=== PATIENT | female | born 1985 | race African-American/Black ===

== ENCOUNTER 2018-09-05 18:07 | Emergency (ER) | payer BC, MEDICAID ==
[2018-09-05 18:16] VITALS: BP 111/42
--- NOTE | 2018-09-05 19:35 | ER Document Report ---
ED Skin Rash/Insect Bite/Abscs - General Chief Complaint: Abscess Stated Complaint: POSSIBLE ABSCESS Time Seen by Provider: 09/05/18 19:17 Primary Care Provider: KERRIE CRAIG MD [Primary Care Provider] - Follow up as needed Mode of Arrival: Ambulatory Information source: Patient Notes: Patient is a otherwise healthy 33-year-old female who presents to the emergency department with complaint of abscess to her right axilla. Patient reports history of same in the past, states she has never had one this large though. Patient denies any fever, denies any drainage from the area. Patient does report that she is approximately 16 weeks . Denies any history of MRSA. TRAVEL OUTSIDE OF THE [place] IN LAST 30 DAYS: No - Related Data Allergies/Adverse Reactions: No Known Allergies Allergy (Verified 09/05/18 18:08) Past Medical History - General Information source: Patient - Social History Smoking Status: Current Some Day Smoker Frequency of alcohol use: None Drug Abuse: None Family History: Reviewed & Not Pertinent - Medical History Medical History: Negative Renal/ Medical History: Denies: Hx Peritoneal Dialysis Past Surgical History: Reports: Hx Section - Immunizations Hx Diphtheria, Pertussis, Tetanus Vaccination: No Review of Systems - Review of Systems Constitutional: No symptoms reported EENT: No symptoms reported Cardiovascular: No symptoms reported Respiratory: No symptoms reported Gastrointestinal: No symptoms reported Genitourinary: No symptoms reported Female Genitourinary: No symptoms reported Musculoskeletal: No symptoms reported Skin: See HPI Hematologic/Lymphatic: No symptoms reported Neurological/Psychological: No symptoms reported Physical Exam - Vital signs Vitals: Temp Pulse Resp BP Pulse Ox 98.8 F 92 16 111/42 L 100 09/05/18 18:14 09/05/18 18:14 09/05/18 18:14 09/05/18 18:14 09/05/18 18:14 - Notes Notes: PHYSICAL EXAMINATION: GENERAL: Well-appearing, well-nourished and in no acute distress. HEAD: Atraumatic, normocephalic. EYES: Pupils equal round extraocular movements intact, conjunctiva are normal. ENT: Nares patent NECK: Normal range of motion LUNGS: No respiratory distress Musculoskeletal: Normal range of motion NEUROLOGICAL: Normal speech, normal gait. PSYCH: Normal mood, normal affect. SKIN: Large area of induration with fluctuance noted to right axilla. No surrounding erythema. Course - Re-evaluation Re-evalutation: Abscess was incised, drained and packed. Patient tolerated well. Patient instructed to remove packing in 24-48 hours. Patient advised of abscess care as outlined in discharge instructions. - Vital Signs Vital signs: Temp Pulse Resp BP Pulse Ox 98.8 F 92 16 111/42 L 100 09/05/18 18:14 09/05/18 18:14 09/05/18 18:14 09/05/18 18:14 09/05/18 18:14 Procedures - Incision and Drainage Right axilla Type: Simple Anesthetic type: 1% Lidocaine Blade size: 11 I&D procedure: Betadine prep applied, Shurclens applied Incision Method: Incision made by scalpel Discharge - Discharge Clinical Impression: Abscess Condition: Stable Disposition: HOME, SELF-CARE Additional Instructions: ABSCESS: You have an abscess (boil). This a pus-forming infection, usually due to staph. Some boils may be left to drain on their own, but most require lancing. From the time the tender lump first appears, it may be three or four days before the abscess is ready to tung. Local heat and rest help at this stage of treatment. An antibiotic may prevent spread of the infection. Once the abscess is opened, packing may be placed into it. This is done so pus is not sealed inside by premature closure of the cavity. The packing will be removed at your follow-up visit or you may be advised to remove it yourself at home. Sometimes this packing must be replaced a few times during healing. The wound will heal with surprisingly little scar. Depending on the size and location of an abscess, healing can take one to four weeks. You may shower and wash the area around the incision site two or three times a day. Antibiotics may be prescribed, but are usually not necessary after an abscess has been drained. If you develop fever, chills, worsening pain, or increasing swelling in the area, call the doctor or return immediately. POST INCISION AND DRAINAGE: You have had an incision made to allow drainage of an abscess. The incision must remain open so that pus and debris can drain from the wound. If the abscess cavity is large, packing is placed. This keeps the tissues from collapsing and trapping pus inside, while the body shrinks the cavity. The packing may need to be replaced every day or two. The physician will instruct you on the packing. Keep a bulky dressing over the area. Replace it if it becomes saturated with blood or pus. Do not disturb the packing (if present). You may shower and cleanse the area with gentle soap and warm water two or three times a day. Local warmth may be soothing, and may promote faster healing. Return if you develop high fever or chills, or if you note spreading redness, increasing swelling, or increasing tenderness. MRSA CELLULITIS: You have an infection of your skin and underlying soft tissues called cellulitis. This is due to bacteria, which can enter through any break in the skin, or even through an irritated hair follicle. Untreated, cellulitis will usually worsen and may form an abscess which requires draining. Although many bacterial organisms can cause cellulitis and abscess formations, the most likely bacteria is Methicillin-Resistant Staph Aureus, or MRSA for short. Antibiotics are required. Usually, warm packs or warm soaks, and elevation of the infected area are recommended. You should start getting better within 24 to 36 hours. Most infections respond quickly to the right medication. Follow-up care is important, however, to check for abscess (boil) formation, unsuspected foreign body, or resistant infection. If you develop fever, chills, or if the area of infection is becoming rapidly more swollen or painful, call the doctor at once. ORAL NARCOTIC MEDICATION: You have been given a prescription for pain control. This medication is a narcotic. It's best taken with food, as nausea can result if taken on an empty stomach. Don't operate machinery or drive within six hours of taking this medication. Do not combine this medicine with alcohol, or with any medication which can cause sedation (such as cold tablets or sleeping pills) unless you get permission from the physician. Narcotics tend to cause constipation. If possible, drink plenty of fluids and eat a diet high in fiber and fruits. FOLLOW-UP CARE: Most simple abscesses will not require a follow up visit. If you had packing placed in the abscess, remove it as instructed by the physician. If you have been referred to a physician for follow-up care, call the physicians office for an appointment as you were instructed or within the next two days. If you experience worsening or a significant change in your symptoms, return to the Emergency Department at any time for re-evaluation. Please remove packing in 24-48 hours. Return to the emergency department if you develop a fever or worsening symptoms. Prescriptions: RX: Clindamycin HCl 300 mg PO QID #40 capsule Referrals: KERRIE CRAIG MD [Primary Care Provider] - Follow up as needed
[2018-09-05] MEDS ORDERED: HYDROCODONE/ACETAMINOPHEN 5-325 MG (6 TAB/ER DISP) PO PRN (20:24)
== END 2018-09-05 21:03 | disposition home or self-care (01) ==
LOC: ER 18:07
DX: L02.411 Cutaneous abscess of right axilla (principal)
CPT/HCPCS: 99282; A6266

== ENCOUNTER 2019-01-18 04:55 | Inpatient (IN) | payer BC ==
[2019-01-15 11:35] LABS: APPEARANCE,URINE SLIGHTLY-CLOUDY; BILIRUBIN,URINE NEGATIVE (NEGATIVE); COLOR,URINE YELLOW; GLUCOSE, URINE NEGATIVE (NEGATIVE); KETONES,URINE NEGATIVE (NEGATIVE); LEUKOCYTE ESTERASE,URINE SMALL (NEGATIVE); NITRITE,URINE NEGATIVE (NEGATIVE); PROTEIN,URINE NEGATIVE (NEGATIVE); URINE SPECIFIC GRAVITY 1.015
[2019-01-15 11:39] LABS: ABSOLUTE BASOPHILS # (AUTO) 0.1 10^3/uL (0.0-0.2); ABSOLUTE EOSINOPHILS # (AUTO) 0.3 10^3/uL (0.0-0.6); ABSOLUTE LYMPHOCYTES (AUTO) 2.1 10^3/uL (0.5-4.7); ABSOLUTE MONOCYTES (AUTO) 0.5 10^3/uL (0.1-1.4); ABSOLUTE NEUT (AUTO) 4.4 10^3/uL (1.7-8.2); BASOPHILS % (AUTO) 0.9 % (0-2); HEMATOCRIT 28.8 % (36.0-47.0); HEMOGLOBIN 9.8 g/dL (12.0-15.5); LYMPHOCYTES % (AUTO) 28.6 % (13-45); MEAN CORPUSCULAR HEMOGLOBIN 29.3 pg (27.0-33.4); MEAN CORPUSCULAR HGB CONC 33.9 g/dL (32.0-36.0); MEAN CORPUSCULAR VOLUME 87 fl (80-97); MONOCYTES % (AUTO) 6.6 % (3-13); RED BLOOD COUNT 3.33 10^6/uL (3.72-5.28); RED CELL DISTRIBUTION WIDTH 15.2 % (11.5-14.0); SEGMENTED NEUTROPHILS % (AUTO) 59.9 % (42-78); TOTAL CELLS COUNTED % (AUTO) 100 %; WHITE BLOOD COUNT 7.3 10^3/uL (4.0-10.5)
[2019-01-15 11:52] LABS: URINE AMPHETAMINES SCREEN NEGATIVE; URINE BARBITURATES SCREEN NEGATIVE; URINE BENZODIAZEPINES SCREEN NEGATIVE; URINE COCAINE SCREEN NEGATIVE; URINE MARIJUANA (THC) SCREEN NEGATIVE; URINE METHADONE SCREEN NEGATIVE; URINE PHENCYCLIDINE SCREEN NEGATIVE
[2019-01-15 12:00] LABS: PLATELET COUNT 218 10^3/uL (150-450)
[2019-01-18] MEDS ORDERED: CEFAZOLIN SODIUM 2 GM in DEXTROSE 5%-WATER 100 ML IV PRN (05:00)
[2019-01-18] MEDS ORDERED: CEFAZOLIN 1 GM/D5W RTU 2 GM/100 ML RTUPB IV ONE (05:18)
[2019-01-18] MEDS ORDERED: RINGERS SOLUTION,LACTATED 1,000 ML IV PRN (06:38)
[2019-01-18] MEDS ORDERED: LACTATED RINGERS 1000 ML IV PRN (06:44)
[2019-01-18] MEDS ORDERED: LIDOCAINE 0.5% INJ-PF (5 MG/ML) 50 ML SDV SUBCUT PRN (06:45)
[2019-01-18] MEDS ORDERED: KETAMINE HCL INJ 500 MG/10 ML VIAL ONE (06:50)
[2019-01-18] MEDS ORDERED: OXYTOCIN 10 UNIT/ML VIAL ONE (07:08)
[2019-01-18] MEDS ORDERED: MIDAZOLAM 2 MG/2 ML INJ ONE (07:08)
[2019-01-18] MEDS ORDERED: EPHEDRINE SULFATE INJ 50 MG/1 ML AMPULE ONE (07:08)
[2019-01-18] MEDS ORDERED: PROPOFOL INJ 200 MG/20 ML VIAL IV ONE (07:08)
[2019-01-18] MEDS ORDERED: FENTANYL CITRATE INJ/PF 100 MCG/2 ML AMPUL ONE (07:08)
[2019-01-18] MEDS ORDERED: OXYTOCIN/NORMAL SALINE 20 UNIT/1,000 ML RTUINJ ONE (07:08)
[2019-01-18] MEDS ORDERED: ONDANSETRON HCL INJ/PF 4 MG/2 ML SDV ONE (07:09)
[2019-01-18] MEDS ORDERED: ACETAMINOPHEN 1,000 MG/100 ML RTUPB IV ONE (07:09)
[2019-01-18] MEDS ORDERED: PROMETHAZINE HCL INJ 25 MG/1 ML VIAL IV PRN ×2 (08:18→09:45)
[2019-01-18] MEDS ORDERED: DIPHENHYDRAMINE HCL 50 MG/ML VIAL IV PRN (08:18)
[2019-01-18] MEDS ORDERED: FENTANYL CITRATE INJ/PF 100 MCG/2 ML AMPUL IV PRN ×3 (08:18)
[2019-01-18] MEDS ORDERED: MEPERIDINE HCL/PF INJ 25 MG/1 ML DISP.SYRIN IV PRN (08:18)
[2019-01-18] MEDS ORDERED: MORPHINE SULFATE 10 MG/ML INJ IV PRN (08:18)
[2019-01-18] MEDS ORDERED: OXYTOCIN/NORMAL SALINE 20 UNIT/1,000 ML RTUINJ IV PRN (09:45)
[2019-01-18] MEDS ORDERED: SIMETHICONE 80 MG TAB.CHEW PO PRN (09:45)
[2019-01-18] MEDS ORDERED: ACETAMINOPHEN 325 MG TABLET PO PRN (09:45)
[2019-01-18] MEDS ORDERED: DIPH/PERTUSS(ACELL)/TETANUS VAC/PF 0.5 ML SYR (>=10YO) IM PRN (09:45)
[2019-01-18] MEDS ORDERED: HYDROMORPHONE HCL INJ/PF 2 MG/ML AMPULE IV PRN (09:45)
[2019-01-18] MEDS ORDERED: ACETAMINOPHEN 1,000 MG/100 ML RTUPB IV PRN (09:45)
[2019-01-18] MEDS ORDERED: MEASLES,MUMPS&RUBELLA VACC/PF 0.5 ML VIAL SUBCUT PRN (09:45)
--- NOTE | 2019-01-18 10:10 | PDOC DELIVERY SUMMARY ---
Delivery Summary - Maternal Hx : VII Hx # Term Pregnancies: 5 Hx Total # of Abortions (Sponateous & Elective): 1 ARCHIE: 01/24/19 Gestational Age: 39.1 Ruptured Membranes: AROM Time of Rupture: 08:14 Fluids: Clear - Delivery Presentation: Vertex Heart Rate Monitoring: Done Pre-Operatively Support Person Present: Yes Location: OR : Scheduled, Repeat Placenta: Within Normal Limits Delivery of Placenta Date: 01/18/19 Delivery of Placenta Time: 08:16 - Medications Type of Anesthesia:: Spinal - Infant Assess and Care Baby 1 Delivery of Date: 01/18/19 Delivery of Time: 08:14 at 1 minute: 7 at 5 minutes: 8 Preprinted Number On Band: [id number] Skin to Skin: No To Nursery At: 08:26 Mode of Transport: Bassinet Delivery Weight: 2,610 Delivery Length: 19 in - Delivery Personnel Water System Operator: TAMY Simmons RN: ALAYNA FOWLER MD: BARRY BRAGG
--- NOTE | 2019-01-18 10:13 | Operative Report ---
Operative Report DATE OF SURGERY: 01/18/19 PREOPERATIVE DIAGNOSIS: Repeat and tubal ligation POSTOPERATIVE DIAGNOSIS: Same OPERATION: Repeat via low transverse uterine incision and tubal ligation via Kimberly method SURGEON: BARRY BRAGG ANESTHESIA: Spinal TISSUE REMOVED OR ALTERED: Placenta and 2 segments of fallopian tube ESTIMATED BLOOD LOSS: 500 cc INTRAOPERATIVE FINDINGS: Viable infant, normal uterus tubes and ovaries PROCEDURE: Patient was taken to the OR and placed in supine position after her spinal anesthesia. She is prepared and draped in sterile fashion. Benavides was placed for drainage of the bladder. Low transverse incision was made and carried down the level of the fascia. The fascial incision was made with knife and extended bilaterally with curved Gaspar scissors. The fascia was off the rectus muscles using sharp and blunt dissection. The rectus muscles are in the midline. The peritoneum was entered without incident. Bladder blade was placed in uterine segment was identified. A low transverse incision was made creating a bladder flap. Bladder blade was placed low transverse uterine incision was made with the knife and extended with fingertips. The baby was delivered with some fundal pressure. Mouth and nose were suctioned free. The cord is doubly clamped and cut. Baby is passed off to the feeder catcher in attendance. The placenta was manually extracted with trailing membranes. The uterus was externalized wrapped in a moist lap sponge. Uterine contents wiped free. Uterus was closed with a running locking layer of 0 chromic suture using the second layer to imbricate the first completing a double layer closure of the uterus. The serosa was closed with a running 2-0 chromic stitch. The tubal ligation was carried out in the modified Chester method using plain gut suture to tie off 2 segments of fallopian tube. The cut edge of each tube was cauterized. Both segments of tube were passed off the field. The pelvis was irrigated and suctioned free of fluid the uterus was replaced in the abdomen. The abdominal wall peritoneum was closed with running 2-0 chromic stitch. Fascia was closed with a running 0 Vicryl in 2 segments. Ilene's layer was brought together with 0 plain gut stitch and the skin was closed with running subcuticular 4-0 undyed Vicryl stitch. The wound was dressed mother and baby did well.
[2019-01-18] MEDS: OXYCODONE-ACETAMINOPHEN 5-325 MG TABLET PO PRN ×3 (10:50→23:36)
[2019-01-18] MEDS ORDERED: DEXAMETHASONE SOD PHOSPHATE INJ 4 MG/1 ML VIAL ONE (14:20)
[2019-01-18] MEDS ORDERED: PHENYLEPHRINE HCL INJ/PF 10 MG/1 ML SDV ONE (14:20)
[2019-01-18] MEDS ORDERED: GLYCOPYRROLATE 1 MG/5 ML VIAL ONE (14:20)
[2019-01-18] MEDS ORDERED: KETOROLAC TROMETHAMINE 60 MG/2 ML SDV ONE (14:20)
[2019-01-18] MEDS: DOCUSATE SODIUM 100 MG CAPSULE PO SCH (17:35)
[2019-01-18] MEDS: KETOROLAC TROMETHAMINE INJ/PF 30 MG/1 ML SDV IV SCH (17:35)
[2019-01-19] MEDS: KETOROLAC TROMETHAMINE INJ/PF 30 MG/1 ML SDV IV SCH ×3 (01:48→09:41)
[2019-01-19 06:53] LABS: HEMATOCRIT 20.8 % (36.0-47.0); MEAN CORPUSCULAR HEMOGLOBIN 29.5 pg (27.0-33.4); MEAN CORPUSCULAR HGB CONC 34.3 g/dL (32.0-36.0); MEAN CORPUSCULAR VOLUME 86 fl (80-97); PLATELET COUNT 172 10^3/uL (150-450); RED BLOOD COUNT 2.43 10^6/uL (3.72-5.28)
[2019-01-19 07:04] LABS: HEMOGLOBIN 7.2 g/dL (12.0-15.5)
[2019-01-19] MEDS: OXYCODONE-ACETAMINOPHEN 5-325 MG TABLET PO PRN ×2 (07:53→17:21)
--- NOTE | 2019-01-19 09:32 | PDOC PROGRESS REPORT ---
Subjective-OB Progress Note for:: 01/19/19 Subjective: Doing well, no c/o, bottle feeding, wearing bra, holding baby,family at bs, walking to BR, voiding, pain under control Physical Exam (OB) Vital Signs: Temp Pulse Resp BP Pulse Ox 98.0 F 74 18 120/64 100 01/19/19 07:49 01/19/19 07:49 01/19/19 07:49 01/19/19 07:49 01/19/19 07:49 Intake & Output 01/18/19 01/19/19 01/20/19 06:59 06:59 06:59 Intake Total 600 Output Total 1175 Balance -575 Weight 87.3 kg - PIH/Pre-Eclampsia DTR's: 2 + Clonus: Negative Headache: Absent Epigastric Pain: No Visual Changes: No - Dressing Removed: No Incision: Dressing Closure Type: Surgical Glue - Bilateral Tubal Ligation Dressing Removed: No Site: Dressing - Lochia Lochia Amount: Moderate 25-50 ml Lochia Color: Rubra/Red - Abdomen Description: Tender, Soft Hernia Present: No Fundal Description: Firm, Midline Fundal Height: u/u - u/2 Objective-Diagnostic Laboratory: 01/19/19 05:51 01/19/19 05:51 WBC 11.0 H RBC 2.43 L Hgb 7.2 L Hct 20.8 L MCV 86 MCH 29.5 MCHC 34.3 RDW 15.0 H Plt Count 172 Assessment and Plan(PN) - Assessment and Plan (1) Iron deficiency anemia during Is this a current diagnosis for this admission?: Yes (2) Encounter for sterilization Is this a current diagnosis for this admission?: Yes (3) Status post repeat low transverse section Is this a current diagnosis for this admission?: Yes - Time Spent with Patient Time with patient: Less than 15 minutes Medications reviewed and adjusted accordingly: Yes - Disposition Anticipated Discharge: Home Within: within 24 hours
[2019-01-19] MEDS: PRENATAL VITAMIN W DHA CAPSULE PO SCH (09:35)
[2019-01-19] MEDS: DOCUSATE SODIUM 100 MG CAPSULE PO SCH ×2 (09:35→17:22)
[2019-01-19] MEDS: IBUPROFEN 800 MG TABLET PO SCH (17:22)
[2019-01-20] MEDS: IBUPROFEN 800 MG TABLET PO SCH ×3 (00:15→11:02)
[2019-01-20] MEDS: OXYCODONE-ACETAMINOPHEN 5-325 MG TABLET PO PRN ×2 (01:55→09:22)
[2019-01-20] MEDS: DOCUSATE SODIUM 100 MG CAPSULE PO SCH (09:22)
[2019-01-20] MEDS: PRENATAL VITAMIN W DHA CAPSULE PO SCH (09:22)
--- NOTE | 2019-01-20 09:49 | PDOC DISCHARGE SUMMARY ---
Final Diagnosis Discharge Date: 01/20/19 - POD#2, doing well, no complaints, desires to go home today, up out of bed ambulating. A+, rubella Non-immune, bottlefeeding - Final Diagnosis (1) Encounter for sterilization Is this a current diagnosis for this admission?: Yes (2) Iron deficiency anemia during Is this a current diagnosis for this admission?: Yes (3) Status post repeat low transverse section Is this a current diagnosis for this admission?: Yes Discharge Data - Discharge Medication Prescriptions: Ferrous Sulfate [Feosol 325 mg Tablet] 325 mg PO DAILY #30 tablet Ibuprofen [Motrin 800 mg Tablet] 800 mg PO Q6 #60 tablet Oxycodone HCl/Acetaminophen [Percocet 5-325 mg Tablet] 1 tab PO Q4HP PRN #30 tablet PRN Reason: Home Medications: Vit,Calc76/Iron/Folic [Prenatabs Rx Tablet] 1 tab PO DAILY 12/26/18 Ferrous Sulfate [Feosol 325 mg Tablet] 325 mg PO DAILY #30 tablet 01/20/19 Ibuprofen [Motrin 800 mg Tablet] 800 mg PO Q6 #60 tablet 01/20/19 Oxycodone HCl/Acetaminophen [Percocet 5-325 mg Tablet] 1 tab PO Q4HP PRN #30 tablet 01/20/19 Reason(s) for Admission: Ceasarean Section-Repeat Procedures: Ultrasound, Management of Obstetric Complications Intrapartum Procedure(s): : Low Cervical, Transverse, Tubal Ligation - Diagnosis Test Laboratory: Temp Pulse Resp BP Pulse Ox 98.5 F 80 18 135/76 H 100 01/20/19 07:46 01/20/19 07:46 01/20/19 04:46 01/20/19 07:46 01/20/19 07:46 01/15/19 01/15/19 01/19/19 10:50 10:54 05:51 RBC 3.33 L 2.43 L Hgb 9.8 L 7.2 L Hct 28.8 L 20.8 L Urine Opiates Screen NEGATIVE - Discharge information/Instructions Discharge Activity: Activity As Tolerated, No Driving, No Lifting Over 10 Pounds, Pelvic Rest Discharge Diet: As Tolerated, Regular Disposition: HOME, SELF-CARE Follow up with: [facility] in: 1, Weeks
[2019-01-20 10:00] VITALS: BP 114/60
[2019-01-20] MEDS ORDERED: FERROUS SULFATE 325 MG TABLET PO SCH (11:00)
[2019-01-21] MEDS ORDERED: RINGERS SOLUTION,LACTATED 1,000 ML IV PRN (05:00)
[2019-01-21] MEDS ORDERED: LIDOCAINE 0.5% INJ-PF (5 MG/ML) 50 ML SDV SUBCUT PRN (05:00)
[2019-01-21] MEDS ORDERED: LACTATED RINGERS 1000 ML IV PRN (05:00)
== END 2019-01-20 13:21 | disposition home or self-care (01) | DRG 785 ==
LOC: 2S 04:55
PROVIDERS: ADMIT Obstetrics & Gynecology; ATTEND Obstetrics & Gynecology
PROC: 0U570ZZ Destruction of Bilateral Fallopian Tubes, Open Approach (ICD-10-PCS; 2019-01-18)
PROC: 10D00Z1 Extraction of Products of Conception, Low, Open Approach (ICD-10-PCS; principal; 2019-01-18 07:45)
DX: O34.211 Maternal care for low transverse scar from previous cesarean delivery (principal); N85.8 Other specified noninflammatory disorders of uterus; O99.019 Anemia complicating pregnancy, unspecified trimester; Z37.0 Single live birth; Z30.2 Encounter for sterilization; Z3A.39 39 weeks gestation of pregnancy
CPT/HCPCS: 1961; 36415; 59025; 80307; 81001; 85025; 85027; 86850; 86900; 86901; 88302; 94799; J0131; J0690; J1100; J1170; J1885; J2250; J2370; J2405; J2590; J2704; J3010; J3490; J7060; J7120

== ENCOUNTER 2019-08-21 15:59 | Emergency (ER) | payer BC, MEDICAID ==
--- NOTE | 2019-08-21 16:17 | ER Document Report ---
HPI - HPI Time Seen by Provider: 08/21/19 16:11 Notes: CHIEF COMPLAINT: Dysuria and hematuria HPI: 34-year-old female presenting to the emergency department complaining of dysuria and hematuria. Symptoms began yesterday while at work. Denies vaginal bleeding. Went to an urgent care was placed on Bactrim she is taken 1 dose and still has symptoms so now presents for evaluation. No fever. Has not had nausea vomiting ROS: See HPI - all other systems were reviewed and are otherwise negative Constitutional: no fever Eyes: no drainage, no blurred vision ENT: no runny nose, no sore throat Cardiovascular: no chest pain Resp: no SOB, no cough GI: no vomiting, no diarrhea, no abdominal pain : Positive dysuria, positive hematuria Integumentary: no rash Allergy: no hives Musculoskeletal: no extremity pain or swelling Neurological: no numbness/tingling, no weakness MEDICATIONS: I agree with the patient medications as charted by the RN. ALLERGIES: I agree with the allergies as charted by the RN. PAST MEDICAL HISTORY/PAST SURGICAL HISTORY: Reviewed and agree as charted by RN. SOCIAL HISTORY: Reviewed and agree as charted by RN. FAMILY HISTORY: No significant familial comorbid conditions directly related to patient complaint EXAM: Reviewed vital signs as charted by RN. CONSTITUTIONAL: Alert and oriented and responds appropriately to questions. Well-appearing; well-nourished mild distress secondary to discomfort HEAD: Normocephalic; atraumatic EYES: PERRL; Conjunctivae clear, sclerae non-icteric ENT: normal nose; no rhinorrhea; moist mucous membranes NECK: Supple without meningismus; non-tender; no cervical lymphadenopathy, no masses CARD: RRR; no murmurs, no clicks, no rubs, no gallops; symmetric distal pulses RESP: Normal chest excursion without splinting or tachypnea ABD/GI: Normal bowel sounds; non-distended; soft, non-tender, no rebound, no guarding; no palpable organomegaly or masses. BACK: The back appears normal and is non-tender to palpation, there is no CVA tenderness EXT: Normal ROM in all joints; non-tender to palpation; no cyanosis, no effu sions, no edema SKIN: Normal color for age and race; warm; dry; good turgor; no acute lesions noted NEURO: Moves all extremities equally; Motor and sensory function intact PSYCH: The patient's mood and manner are appropriate. Grooming and personal hygiene are appropriate. MDM: 34-year-old female presenting with hematuria and dysuria for approximately 24 hours. Took 1 dose of Bactrim prescribed at an urgent care. Will send urinalysis. She denies any vaginal bleeding, has no abdominal or pelvic pain on palpation of the abdomen - REPRODUCTIVE Reproductive: REPORTS: : Past Medical History - Social History Smoking Status: Unknown if Ever Smoked Family History: Reviewed & Not Pertinent Endocrine Medical History: Denies: Hx Hyperthyroidism, Hx Hypothyroidism Renal/ Medical History: Denies: Hx Kidney Stones, Hx Ovarian Cysts, Hx Peritoneal Dialysis, Hx Pelvic Inflammatory Disease Malignancy Medical History: Denies: Hx Breast Cancer, Hx Cervical Cancer, Hx Ovarian Cancer Infectious Medical History: Denies: Hx HIV Past Surgical History: Reports: Hx Section - Immunizations Hx Diphtheria, Pertussis, Tetanus Vaccination: No Vertical Provider Document - INFECTION CONTROL TRAVEL OUTSIDE OF THE [place] IN LAST 30 DAYS: No Course - Re-evaluation Re-evalutation: 08/21/19 17:00 Patient does appear to have a fairly significant UTI will give Rocephin, discharge home to continue on Bactrim we will add Pyridium Discharge - Discharge Clinical Impression: Acute cystitis Qualifiers: Hematuria presence: with hematuria Qualified Code(s): N30.01 - Acute cystitis with hematuria Condition: Stable Disposition: HOME, SELF-CARE Instructions: Urinary Tract Infection ([facility]) Additional Instructions: Continue to take the Bactrim until finished. Add Pyridium to help with the discomfort, follow-up primary care provider for reevaluation return for onset of fever or vomiting or worsening pain Prescriptions: Phenazopyridine HCl [Pyridium 100 Mg Tablet] 100 mg PO TID #9 tablet Referrals: SATHYA URBANO MD [Primary Care Provider] - Follow up as needed
[2019-08-21 16:44] LABS: APPEARANCE,URINE CLOUDY; BILIRUBIN,URINE NEGATIVE (NEGATIVE); COLOR,URINE YELLOW; GLUCOSE, URINE NEGATIVE (NEGATIVE); KETONES,URINE NEGATIVE (NEGATIVE); LEUKOCYTE ESTERASE,URINE MODERATE (NEGATIVE); NITRITE,URINE NEGATIVE (NEGATIVE); PROTEIN,URINE >=500 mg/dL (NEGATIVE); URINE SPECIFIC GRAVITY 1.027
[2019-08-21] MEDS ORDERED: CEFTRIAXONE INJ 1000 MG VIAL IM ONE (16:59)
[2019-08-21] MEDS ORDERED: PHENAZOPYRIDINE HCL 200 MG TABLET PO ONE (17:01)
[2019-08-21 17:02] VITALS: BP 116/64
[2019-08-21] MEDS ORDERED: LIDOCAINE 1% INJ-PF (10 MG/ML) 30 ML SDV ONE (17:12)
== END 2019-08-21 17:33 | disposition home or self-care (01) ==
LOC: ER 15:59
DX: N30.01 Acute cystitis with hematuria (principal)
CPT/HCPCS: 99283; 96372; 81025; 81001; J3490 ×2; J0696

== ENCOUNTER 2020-06-13 08:19 | Emergency (ER) | payer BC ==
[2020-06-13 10:53] LABS: APPEARANCE,URINE CLOUDY; BILIRUBIN,URINE NEGATIVE (NEGATIVE); GLUCOSE, URINE NEGATIVE (NEGATIVE); KETONES,URINE 20 mg/dL (NEGATIVE); LEUKOCYTE ESTERASE,URINE LARGE (NEGATIVE); NITRITE,URINE NEGATIVE (NEGATIVE); PROTEIN,URINE 100 mg/dL (NEGATIVE); URINE SPECIFIC GRAVITY 1.027; UROBILINOGEN,URINE NEGATIVE mg/dL (<2.0)
[2020-06-13 10:54] LABS: COLOR,URINE DARK YELLOW
--- NOTE | 2020-06-13 10:59 | ER Document Report ---
ED GI/ - General Chief Complaint: Urinary Problem Stated Complaint: URINARY PROBLEM Mode of Arrival: Ambulatory Information source: Patient Notes: 06/13/20 09:34 - ED Nursing Note by ADRIANA ZHANG Num: [id number] : 1985 Patient Age: 34 pt comes to ed from home via pov brought by self for c/o 4day onset urinary concerns. +hemturia, burning, urgency, hesitency. denies n/v/d/f/c, denies flank pain or vaginal symptoms. similar discomfort with UTI >6mon ago. attempted OTC AZO with no relief. Initialized on 06/13/20 09:34 - END OF NOTE MY NOTES 34-year-old black female arrives with 4-day history of dysuria and suprapubic pain. She denies any vaginal discharge denies any new toilet paper or new soaps or detergents. She has had some hematuria. Her discomfort is around 7 out of 10. She reports she additionally tried some [id number] Azo and this helped her with her symptoms but within 1 day her symptoms returned and became more severe. She has had 1 infection UTI and her past many years ago. 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 TRAVEL OUTSIDE OF THE [place] IN LAST 30 DAYS: No - HPI Patient complains to provider of: Abdominal pain - Edwin, Dysuria, Hematuria. No: Feeding tube problem, Flank pain, Benavides catheter problem, Missed/Late menses, Pelvic pain, Vaginal bleeding - Related Data Allergies/Adverse Reactions: No Known Allergies Allergy (Verified 06/13/20 09:31) Home Medications: denies Past Medical History - General Information source: Patient - Social History Smoking Status: Never Smoker Cigarette use (# per day): No Chew tobacco use (# tins/day): No Frequency of alcohol use: None Drug Abuse: None Family History: Reviewed & Not Pertinent Patient has suicidal ideation: No Patient has homicidal ideation: No Endocrine Medical History: Denies: Hx Hyperthyroidism, Hx Hypothyroidism Renal/ Medical History: Denies: Hx Kidney Stones, Hx Ovarian Cysts, Hx Peritoneal Dialysis, Hx Pelvic Inflammatory Disease Malignancy Medical History: Denies: Hx Breast Cancer, Hx Cervical Cancer, Hx Ovarian Cancer Infectious Medical History: Denies: Hx HIV Past Surgical History: Reports: Hx Section - Immunizations Hx Diphtheria, Pertussis, Tetanus Vaccination: No Review of Systems - Review of Systems Constitutional: No symptoms reported EENT: No symptoms reported Cardiovascular: No symptoms reported Respiratory: No symptoms reported Gastrointestinal: No symptoms reported Genitourinary: See HPI, Burning, Dysuria, Frequency, Pain, Urgency Female Genitourinary: No symptoms reported Musculoskeletal: No symptoms reported Skin: No symptoms reported Hematologic/Lymphatic: No symptoms reported Neurological/Psychological: No symptoms reported Physical Exam - Vital signs Vitals: Temp Pulse Resp BP Pulse Ox 98 F 90 16 138/75 H 100 06/13/20 08:25 06/13/20 08:25 06/13/20 08:25 06/13/20 08:25 06/13/20 08:25 Interpretation: Normal - General General appearance: Appears well, Alert - HEENT Head: Normocephalic, Atraumatic Eyes: Normal Pupils: PERRL - Respiratory Respiratory status: No respiratory distress Chest status: Nontender Breath sounds: Normal Chest palpation: Normal - Cardiovascular Rhythm: Regular Heart sounds: Normal auscultation Murmur: No - Abdominal Inspection: Normal Distension: No distension Bowel sounds: Normal Tenderness: Tender - Tender in suprapubic area Organomegaly: No organomegaly - Rectal Hemorrhoids: Other - Genitourinary External exam: Normal - Per nursing tender on palpation suprapubic - Back Back: Normal, Nontender - Extremities General upper extremity: Normal inspection, Nontender, Normal color, Normal ROM, Normal temperature General lower extremity: Normal inspection, Nontender, Normal color, Normal ROM, Normal temperature, Normal weight bearing. No: Gerson's sign - Neurological Neuro grossly intact: Yes Cognition: Normal Orientation: AAOx4 Elmer Coma Scale Eye Opening: Spontaneous Elmer Coma Scale Verbal: Oriented Elmer Coma Scale Motor: Obeys Commands Elmer Coma Scale Total: 15 Speech: Normal Motor strength normal: LUE, RUE, LLE, RLE Sensory: Normal - Psychological Associated symptoms: Normal affect, Normal mood - Skin Skin Temperature: Warm Skin Moisture: Dry Skin Color: Normal Course - Vital Signs Vital signs: Temp Pulse Resp BP Pulse Ox 98 F 90 16 138/75 H 100 06/13/20 08:25 06/13/20 08:25 06/13/20 08:25 06/13/20 08:25 06/13/20 08:25 - Laboratory Results Laboratory Results Interpreted: 06/13/20 09:38 Urine Protein 100 H Urine Ketones 20 H Urine Blood LARGE H Ur Leukocyte Esterase LARGE H Critical Laboratory Results Reviewed: Yes Attending or Supervising Physician who Reviewed Labs: MOISÉS BAUTISTA JR - Radiology Results Critical Radiology Results Reviewed: No Critical Results Attending or Supervising Physician who Reviewed Radiology: MOISÉS BAUTISTA JR Critical Care Note - Critical Care Note Comments: I informed patient of her urinalysis results and she appeared to understand Discharge - Discharge Clinical Impression: UTI (urinary tract infection) Qualifiers: Urinary tract infection type: acute cystitis Hematuria presence: without hematuria Qualified Code(s): N30.00 - Acute cystitis without hematuria Condition: Stable Disposition: HOME, SELF-CARE Instructions: Urinary Tract Infection ([facility]) Additional Instructions: Follow-up with personal doctor next week ; return to ER as needed ; take medications as directed; encourage fluids Prescriptions: Ciprofloxacin HCl [Cipro 500 mg Tablet] 500 mg PO BID #20 tablet Ciprofloxacin HCl [Cipro 500 mg Tablet] 500 mg PO BID #20 tablet Forms: Return to Work
[2020-06-13] MEDS ORDERED: CEFTRIAXONE INJ 1000 MG VIAL IM ONE (11:04)
[2020-06-13] MEDS ORDERED: LIDOCAINE 1% INJ (10 MG/ML) 10 ML MDV INJ ONE (11:25)
[2020-06-13 11:52] VITALS: BP 128/61
== END 2020-06-13 11:51 | disposition home or self-care (01) ==
LOC: ER 08:19
DX: N30.00 Acute cystitis without hematuria (principal)
CPT/HCPCS: 99284; 96372; 87086; 81025; 81001; J0696

== ENCOUNTER → 2020-07-03 | Outpatient (CLI) | payer BC ==
--- NOTE | 2020-07-03 09:35 | ER [facility] ASSESSMENT REPORT ---
Intake - In the Last 14 days Have you traveled outside [place]?: No Have you been in close contact with someone CONFIRMED: No Worked in Healthcare?: No - Symptoms Subjective Fever([place] feverish): Yes Chills: Yes Muscule Aches: No Runny Nose: Yes Sore Throat: No Cough (New or worsening chronic cough): Yes Shortness of breath: No Nausea or Vomiting: Yes Headache: No Abdominal Pain: No Diarrhea(3 or more loose stools in last 24 hours): No - Do you have any of the following Chronic lung disease: Asthma or emphysema or COPD: No Cystic Fibrosis: No Diabetes: No High Blood Pressure: No Cardiovascular Disease: No Chronic Kidney Disease: No Chronic Liver Disease: No Chronic blood disorder like Sickle Cell Disease: No Weak immune system due to disease or medication: No Neurologic condition that limits movement: No Developmental delay - Moderate to Severe: No Recent (within past 2 weeks) or current : No Morbid Obesity (>100 pounds over ideal weight): No - Objective Temperature: 98.8 F Pulse Rate: 77 Respiratory Rate: 18 Blood Pressure: 129/66 O2 Sat by Pulse Oximetry: 100 Objective: Given above, testing performed: If Testing Performed: Test Specimen Type Sent to General - General Information source: Patient Notes: Patient presents to the [facility] for screening for the coronavirus. Patient reports having fever chills, runny nose, cough with nausea for the past 3 days. - Related Data Allergies/Adverse Reactions: No Known Allergies Allergy (Verified 06/13/20 09:31) Past Medical History - General Information source: Patient - Social History Smoking Status: Never Smoker Family History: Reviewed & Not Pertinent - Medical History Medical History: Negative Endocrine Medical History: Denies: Hx Hyperthyroidism, Hx Hypothyroidism Renal/ Medical History: Denies: Hx Kidney Stones, Hx Ovarian Cysts, Hx Peritoneal Dialysis, Hx Pelvic Inflammatory Disease Malignancy Medical History: Denies: Hx Breast Cancer, Hx Cervical Cancer, Hx Ovarian Cancer Infectious Medical History: Denies: Hx HIV Past Surgical History: Reports: Hx Section Physical Exam - Notes Notes: The patient was evaluated during the global Covid 19 pandemic, and that diagnosis was suspected/considered upon their initial presentation. Their evaluation and testing was consistent with current guidelines for patients who present with complaints or symptoms that may be related to Covid 19. Full physical exam could not be performed due to covid 19 isolation protocols. Constitutional: Nontoxic appearance, no acute distress Eyes: Nonicteric, extraocular movements intact, sclera clear ENT: Posterior pharynx without exudate, no tonsillar hypertrophy Cardiovascular: Heart rate and rhythm regular Respiratory: Breath sounds clear bilaterally, nonlabored breathing, no use of accessory muscles, no tachypnea Gastrointestinal: Abdomen not distended Muculoskeletal: Moves all extremities well Skin: Normal color Neuro: Awake alert oriented, normal speech Psych: Normal mood and affect Diagnostic Results Laboratory Results: Patient presents with upper respiratory symptoms worrisome for possible Covid 19. Patient does not have emergency worrying symptoms such as difficulty breathing, shortness of breath, chest pain, pressure, confusion or cyanosis. Patient appears suitable for discharge as they are not of an advanced age, do not have any chronic medical conditions such as diabetes, CAD, immune deficiency, chronic lung disease or chronic kidney disease. Patient's vital signs are stable and patient is nontoxic in appearance. Good return precautions have been discussed with patient, patient verbalized understanding and is agreeable with discharge plan of care at this time. Patient Education/Counseling Counseling/Education: Patient was provided with discharge information including: As a person under investigation for Covid 19, the [place] department of Health and Human Services, division of public health advises you to adhere to the following guidance until your test results are reported to you. If your test result is positive, you will receive additional information from your provider and your local health department at that time. Remain at home until you are cleared by the health provider or public health authorities. Keep a log of visitors to your home, notify any visitors to your home of your isolation status. If you plan to move to a new address or leave the county, notify the local health department in your County. Call your doctor or seek care if you have an urgent medical need. Before seeking medical care, call ahead to get instructions from the provider before arriving at the medical office clinic or hospital. Notify them that you are being tested for the virus that causes Covid 19 so that arrangements can be made, as necessary, to prevent transmission to others in the healthcare setting. Next, notify the local health department in your county. If a medical emergency arises and you need to call 911, inform the first responders that you are being tested for the virus that causes Covid 19. Next, notify the local health department in your county. [facility] Discharge - Discharge Clinical Impression: Encounter for screening for COVID-19 Condition: Stable Disposition: Home; Selfcare
[2020-07-03 10:12] VITALS: BP 129/66
== END ==
LOC: RDC 09:14
PROVIDERS: ATTEND Nurse Practitioner Family
DX: Z20.822 Contact with and (suspected) exposure to COVID-19 (principal); R50.9 Fever, unspecified; R09.89 Other specified symptoms and signs involving the circulatory and respiratory systems; R05 Cough; R11.2 Nausea with vomiting, unspecified
CPT/HCPCS: 99202; 99211; U0003; C9803; 87635